=== PATIENT | female | born 1990 | race African-American/Black ===

== ENCOUNTER 2018-05-16 13:46 | Emergency (ER) | payer MEDICAID, SELFPAY ==
[2018-05-16 14:01] LABS: Bilirubin Negative (Negative); Blood, Urine Trace (Negative); Clarity Slightly Cloudy (Clear); Glucose, Urine (Dipstick) Negative (Negative); Leukocyte Negative (Negative); Nitrite Negative (Negative); Protein, Urine (Dipstick) Trace mg/dL (Neg-Trace); Specific Gravity, Urine 1.015 (1.005-1.030); Urobilinogen 0.2 mg/dL (0.2-1.0); pH, Urine 8.5 (5.0-9.0)
[2018-05-16 14:12] LABS: RBC/HPF 0-3 HPF (0-3)
[2018-05-16 14:13] LABS: Bacteria/HPF 3+ HPF (None Seen); Oval Fat Bodies/HPF Rare HPF (None Seen); Squamous Epithelial 0-3 HPF (0-3)
[2018-05-16 14:19] LABS: Pregnancy Test - Urine (BHCG) Negative (Negative); Pregu Control Background? CLEAR/WHITE (CLR/WHITE); Pregu Control Bar Appear? YES (CONTROL BAR); Specific Gravity 1.015 (1.002-1.036)
[2018-05-18 02:54] LABS: Chlamydia by PCR DETECTED (NotDetected); GC by PCR DETECTED (NotDetected)
== END 2018-05-16 14:27 | disposition home or self-care (01) ==
LOC: SCSER 13:46
DX: N39.0 Urinary tract infection, site not specified (principal); F32.9 Major depressive disorder, single episode, unspecified
CPT/HCPCS: 81003; 81015; 81025; 87077; 87086; 87186; 87480; 87491; 87510; 87591; 87660; 99283

== ENCOUNTER → 2018-05-19 | Day surgery (SDC) | payer SELFPAY ==
[~2018-05-19] MED LIST: Azithromycin 250 MG TAB ONE; Lidocaine 1% PF 5 ML VIAL ONE; cefTRIAXone\\ROCEPHIN 250 MG VIAL ONE
== END ==
LOC: SCSER/OP 12:23
DX: Z29.8 Encounter for other specified prophylactic measures (principal)
CPT/HCPCS: J0696; J2001

== ENCOUNTER 2018-07-01 17:59 | Emergency (ER) | payer SELFPAY ==
[2018-07-01 18:38] LABS: Bilirubin Negative (Negative); Blood, Urine Moderate (Negative); Clarity Hazy (Clear); Glucose, Urine (Dipstick) Negative (Negative); Leukocyte Moderate (Negative); Nitrite Negative (Negative); Protein, Urine (Dipstick) 100 mg/dL (Neg-Trace); Specific Gravity, Urine 1.015 (1.005-1.030)
[2018-07-01 18:40] LABS: Bacteria/HPF 2+ HPF (None Seen); WBC/HPF 21-50 HPF (0-3)
[2018-07-01 18:41] LABS: Pregu Control Background? CLEAR/WHITE (CLR/WHITE); Pregu Control Bar Appear? YES (CONTROL BAR); Specific Gravity 1.015 (1.002-1.036)
[2018-07-01 18:42] LABS: Pregnancy Test - Urine (BHCG) Negative (Negative)
== END 2018-07-01 18:57 | disposition home or self-care (01) ==
LOC: SCSER 17:59
DX: N30.00 Acute cystitis without hematuria (principal)
CPT/HCPCS: 81003; 81015; 81025; 87077; 87086; 87186; 99283